=== PATIENT | male | born 1950 | race Caucasian/White ===

== ENCOUNTER 2021-08-28 20:46 | Inpatient (IN) | payer MEDICARE, OTHER ==
[~2021-08-28] VITALS: Ht 170.2 cm; Wt 74.8 kg
[~2021-08-28 20:46] MED LIST: ALBU90OI INH; ALLEGRA ALLERG180 M1 PO; ASPI81EC PO; ASTEPRO205.5 MCG/; Aspirin EC81 MG; BUDE.25 NEB; CEPH500 PO; EPIPEN 2-P0.3 MG/0.3 IM; ESOM20 PO; FEXPSEER PO; HYDR1TAB94 PO; LEVO-T150 MCG PO; LEVSOD100 PO; Nexium40 MG PO; PRAV20 PO; ROSU10TA PO; ZOLP10 PO; ZOLP5 PO
[2021-08-28 21:20] LABS: BASOPHILS ABSOLUTE AUTO 0.01 K/mm3 (0.00-0.23); BASOPHILS PERCENT AUTO 0 % (0-2); EOSINOPHILS PERCENT AUTO 0 % (0-6); Hematocrit 38.4 % (37.0-53.0); Hemoglobin 12.8 g/dL (13.5-17.5); IMMATURE GRAN ABSOLUTE AUTO 0.03 K/mm3 (0.00-0.10); IMMATURE GRAN PERCENT AUTO 0 % (0-1); LYMPHOCYTES ABSOLUTE AUTO 0.74 K/mm3 (0.84-5.20); LYMPHOCYTES PERCENT AUTO 11 % (21-46); MONOCYTES ABSOLUTE AUTO 0.28 K/mm3 (0.16-1.47); MONOCYTES PERCENT AUTO 4 % (4-13); Mean Corpuscular HGB Conc 33.3 g/dL (31.5-36.5); Mean Corpuscular Volume 90 fL (80-100); Mean Platelet Volume 10.9 fL (9.1-12.4); NEUTROPHILS ABSOLUTE AUTO 5.87 K/mm3 (1.96-9.15); NEUTROPHILS PERCENT AUTO 85 % (41-73); Platelet Count 217 K/mm3 (150-400); RDW Coefficient Variation 13.1 % (11.7-14.2); RDW Standard Deviation 43.5 fL (35.1-46.3); Red Blood Cell Count 4.27 M/mm3 (4.30-5.90); White Blood Cell Count 6.93 K/mm3 (4.00-11.30)
[2021-08-28 21:30] LABS: Albumin, Blood 2.8 g/dL (3.4-5.0); Albumin/Globulin Ratio 0.5 (0.8-1.8); Bilirubin, Total 0.8 mg/dL (0.1-1.0); Bun/Creatinine Ratio 18.2 (12.0-20.0); Calcium, Blood 8.6 mg/dL (8.5-10.1); Creatinine, Blood 1.21 mg/dL (0.60-1.20); Globulin, Blood 5.1 g/dL (2.2-4.0); Potassium, Blood 4.1 mmol/L (3.5-5.5); Total Protein, Blood 7.9 g/dL (6.4-8.2)
[2021-08-29] MEDS ORDERED: METOPROLOL SUCC25 MG PO (00:06)
[2021-08-29] MEDS ORDERED: OMEP20ER PO (00:06)
[2021-08-29] MEDS ORDERED: Prinivil10 MG PO (00:06)
[2021-08-29] MEDS ORDERED: LISINOPRIL-HCT1 EACH PO (00:07)
--- NOTE | 2021-08-29 00:35 | NUR ---
transfer report from [facility] LOCAL FLATBED DRIVER in PT 71 year old found down hypoxic by caregiver sat 81 % covid 19 positive. IV remdesivere started in ER & PT will be admitted with tele monitoring . Await admission
--- NOTE | 2021-08-29 18:42 | NUR ---
SHIFT SUMMARY- PT SLEPT FOR MOST OF THIS SHIFT. HE IS RECIEVING 02 VIA UT. HE IS EATING AND DRINKING WELL. UPDATED FAMILY THIS SHIFT. HE IS AMBULATING THE THE RESTROOM. HIS BED IS IN THE LOW POSITION AND CALL LIGHT IS WITHIN REACH.
[2021-08-30 05:19] LABS: BASOPHILS ABSOLUTE AUTO 0.02 K/mm3 (0.00-0.23); BASOPHILS PERCENT AUTO 0 % (0-2); EOSINOPHILS PERCENT AUTO 0 % (0-6); Hematocrit 35.1 % (37.0-53.0); Hemoglobin 11.6 g/dL (13.5-17.5); Mean Corpuscular HGB 29.5 pg (26.0-34.0); Mean Corpuscular Volume 89 fL (80-100); Mean Platelet Volume 10.6 fL (9.1-12.4); Platelet Count 250 K/mm3 (150-400); RDW Coefficient Variation 12.7 % (11.7-14.2); RDW Standard Deviation 42.2 fL (35.1-46.3); Red Blood Cell Count 3.93 M/mm3 (4.30-5.90); White Blood Cell Count 7.17 K/mm3 (4.00-11.30)
[2021-08-30 05:21] LABS: IMMATURE GRAN ABSOLUTE AUTO 0.03 K/mm3 (0.00-0.10); IMMATURE GRAN PERCENT AUTO 0 % (0-1); LYMPHOCYTES PERCENT AUTO 10 % (21-46); MONOCYTES ABSOLUTE AUTO 0.34 K/mm3 (0.16-1.47); MONOCYTES PERCENT AUTO 5 % (4-13); NEUTROPHILS ABSOLUTE AUTO 6.08 K/mm3 (1.96-9.15); NEUTROPHILS PERCENT AUTO 85 % (41-73)
[2021-08-30 05:44] LABS: Alanine Aminotransfer (ALT/SGP 30 U/L (12-78); Albumin, Blood 2.6 g/dL (3.4-5.0); Albumin/Globulin Ratio 0.6 (0.8-1.8); Alk Phos 56 U/L (50-136); Anion Gap 8 mmol/L (6-16); Aspartate Aminotrans (AST/SGOT 37 U/L (12-37); Bilirubin, Total 0.7 mg/dL (0.1-1.0); Blood Urea Nitrogen 32 mg/dL (8-24); Bun/Creatinine Ratio 27.8 (12.0-20.0); CO2, Blood 28 mmol/L (21-32); Calcium, Blood 8.5 mg/dL (8.5-10.1); Chloride, Blood 102 mmol/L (98-108); Creatinine, Blood 1.15 mg/dL (0.60-1.20); Glomerular Filtration Rate >60 (60-); Glucose, Blood 128 mg/dL (70-99); Potassium, Blood 4.7 mmol/L (3.5-5.5); Sodium, Blood 138 mmol/L (136-145); Total Protein, Blood 6.6 g/dL (6.4-8.2)
--- NOTE | 2021-08-30 08:06 | NUR ---
NOTIFIED PATIENT WITH FEVER 100.3, NO TYLENOL ON EMAR. MD TO ORDER
--- NOTE | 2021-08-30 11:42 | NUR ---
VIVIANA FULLER, UPDATED ON CONDITION.
--- NOTE | 2021-08-30 17:27 | NUR ---
ALERT. ORIENTED. ON 2 LPM WITH WIFI SAT MACHINE SHOWING 90% OR ABOVE. STS WAS TIRED WHEN TOOK SHOWER. DOES NOT EAT BREAKFAST, BUT ATE 100% LUNCH. PLEASANT. ABLE TO MAKE NEEDS KNOWN. WCTM
--- NOTE | 2021-08-31 06:12 | NUR ---
SHIFT SUMMARY: PATIENT IS MAINTAINING 02 SATS BETWEEN 89-92 ON 4L NC. SLEPT WELL, NO REPORTS OF RESPIRATORY DISTRESS.
--- NOTE | 2021-08-31 14:28 | NUR ---
PATIENT OBSERVED LYING ON SIDE WITH WIFI SATS SHOWING 96% ON 3 LPM. WHEN SITTING UP EATTING SATS 89-90% ON 3 LPM. WCTM
--- NOTE | 2021-08-31 17:57 | NUR ---
ALERT. ORIENTED. STS NOT TIRED WHEN WALKING TO BATHROOM TODAY. OXYGEN SATS 94-97% WHILE SITTING UP EATTING ON 3LPM VIA N/C. OXYGEN TURNED DOWN TO 2 LPM WITH SATS MAINTAINING 94-97%. DENIES ANY PAIN. PLEASANT. COOPERATIVE. HAS BEEN SLEEPING ON SIDE T/O DAY WITH SATS IN MID 90'S. GOOD APPETITE. IV PATENT. WCTM
[2021-09-01] MEDS ORDERED: DEXA6 PO (11:26)
--- NOTE | 2021-09-01 16:25 | NUR ---
DISCHARGE SUMMARY PATIENT IS ALERT AND ORIENTED X4. PATIENT IS INDEPENDENT IN ROOM. PATIENT IS ON 3 LITERS OXYGEN SATTING GREATER THAN 92 PERCENT. NO ACUTE EVENTS THIS SHIFT. PATIENT HAD NO COMPLAINTS OF PAIN, NAUSEA, SOB OR VOMITTING THIS SHIFT. VITAL SIGNS REVIEWED. PATIENT WAS WHEELED OUT TO FRIENDS CAR BY IRIS CARTER.
== END 2021-09-01 16:21 | disposition home or self-care (01) | DRG 871 ==
LOC: ER 20:46 → MEDS 23:18 → ER 08-29 00:27 → MEDS 08-29 00:45
PROVIDERS: Emergency Medicine; Internal Medicine; ADMIT Internal Medicine
PROC: 8E0ZXY6 Isolation (ICD-10-PCS; principal; 2021-08-29)
PROC: 3E0DX3Z Introduction of Anti-inflammatory into Mouth and Pharynx, External Approach (ICD-10-PCS; 2021-08-29)
DX: A41.89 Other specified sepsis (principal); U07.1 COVID-19; J96.01 Acute respiratory failure with hypoxia; J12.82 Pneumonia due to coronavirus disease 2019; G93.41 Metabolic encephalopathy; J44.0 Chronic obstructive pulmonary disease with (acute) lower respiratory infection; N17.9 Acute kidney failure, unspecified; I10 Essential (primary) hypertension; E03.9 Hypothyroidism, unspecified; K21.9 Gastro-esophageal reflux disease without esophagitis; E86.0 Dehydration; Z53.29 Procedure and treatment not carried out because of patient's decision for other reasons; Z87.891 Personal history of nicotine dependence; Z90.49 Acquired absence of other specified parts of digestive tract; Z90.89 Acquired absence of other organs; Z98.890 Other specified postprocedural states; Z88.8 Allergy status to other drugs, medicaments and biological substances; Z79.899 Other long term (current) drug therapy
CPT/HCPCS: 36415; 71045; 80053; 85025; 93005; 93010; 94640; 94760; 94762; 96365; 99285-25; A9270; C9113; C9399; J0248; J1644; J1650; J7050

== ENCOUNTER 2023-08-16 10:37 | Day surgery (SDC) | payer MEDICARE, OTHER ==
[~2023-08-16] VITALS: Ht 170.2 cm; Wt 77.8 kg
[~2023-08-16 10:37] MED LIST changes: +DEXA6 PO; +LISINOPRIL-HCT1 EACH PO; +METOPROLOL SUCC25 MG PO; +OMEP20ER PO; +Prinivil10 MG PO
[2023-08-16] MEDS ORDERED: VITAMIN D31250 MC2 (11:19)
[2023-08-16] MEDS ORDERED: TRAZ50 (11:19)
[2023-08-16] MEDS ORDERED: ZYRTEC10 M2 (11:20)
[2023-08-16] MEDS ORDERED: Crestor40 MG (11:20)
[2023-08-16] MEDS ORDERED: LOSA25 (11:21)
[2023-08-16] MEDS ORDERED: EZET10 (11:21)
[2023-08-16 12:33] VITALS: BP 115/65
== END 2023-08-16 12:37 | disposition home or self-care (01) ==
LOC: ORSCSDS 10:37
PROVIDERS: Specialist
PROC: 0DBL8ZX Excision of Transverse Colon, Via Natural or Artificial Opening Endoscopic, Diagnostic (ICD-10-PCS; principal; 2023-08-16 12:00)
DX: Z12.11 Encounter for screening for malignant neoplasm of colon (principal); D12.3 Benign neoplasm of transverse colon; K64.8 Other hemorrhoids; K57.30 Diverticulosis of large intestine without perforation or abscess without bleeding; Z86.010 Personal history of colon polyps; J44.9 Chronic obstructive pulmonary disease, unspecified; E78.5 Hyperlipidemia, unspecified; G47.33 Obstructive sleep apnea (adult) (pediatric); E03.9 Hypothyroidism, unspecified; I10 Essential (primary) hypertension; Z86.718 Personal history of other venous thrombosis and embolism; I25.810 Atherosclerosis of coronary artery bypass graft(s) without angina pectoris; Z95.1 Presence of aortocoronary bypass graft; Z79.82 Long term (current) use of aspirin; Z79.899 Other long term (current) drug therapy; Z87.891 Personal history of nicotine dependence
CPT/HCPCS: 88305; J2704; J7120

== ENCOUNTER 2023-09-17 07:43 | Day surgery (SDC) | payer MEDICARE ==
[~2023-09-17] VITALS: Ht 170.2 cm; Wt 79.0 kg
[~2023-09-17 07:43] MED LIST changes: +Crestor40 MG; +EZET10; +LOSA25; +Lactated Ringer's 1,000 ML IV ONE; +TRAZ50; +VITAMIN D31250 MC2; +ZYRTEC10 M2; +propofoL 50 ML IV ONE
[2023-09-17] MEDS ORDERED: Lactated Ringer's 1,000 ML IV ONE (08:16)
[2023-09-17 09:34] VITALS: BP 104/65
== END 2023-09-17 09:32 | disposition home or self-care (01) ==
LOC: ORSCSDS 07:43
PROVIDERS: Internal Medicine Gastroenterology
PROC: 0D757ZZ Dilation of Esophagus, Via Natural or Artificial Opening (ICD-10-PCS; principal; 2023-09-17 09:00)
PROC: 0DJ08ZZ Inspection of Upper Intestinal Tract, Via Natural or Artificial Opening Endoscopic (ICD-10-PCS; principal; 2023-09-17 09:00)
DX: R13.10 Dysphagia, unspecified (principal); K21.9 Gastro-esophageal reflux disease without esophagitis; I10 Essential (primary) hypertension; G47.33 Obstructive sleep apnea (adult) (pediatric); R09.89 Other specified symptoms and signs involving the circulatory and respiratory systems; J44.9 Chronic obstructive pulmonary disease, unspecified; E03.9 Hypothyroidism, unspecified; Z87.891 Personal history of nicotine dependence; Z79.82 Long term (current) use of aspirin; Z79.899 Other long term (current) drug therapy
CPT/HCPCS: J2704; J7120